=== PATIENT | female | born 1955 | race Caucasian/White ===

== ENCOUNTER 2022-03-22 15:11 | Emergency (ER) | payer OTHER, MEDICAID, SELFPAY ==
[2022-03-22 15:32] VITALS: BP 139/81; PULSE 82; RESP 20; TEMP 36.3; O2SAT 96; BMI 24.4
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
[2022-03-22] MEDS: HYDROCODONE/ACET 5/325 TABLET 1 TAB PO (16:48)
[2022-03-22] MEDS: ONDANSETRON 4 MG ODT SL (16:48)
[2022-03-22] MEDS: BACITRACIN OINT 0.9 GM PCKT 1 APPLIC TOP (16:48)
[2022-03-22] MEDS: methocarbamoL 500 MG TABLET PO (16:49)
[2022-03-22] MEDS: KETOROLAC 30 MG/ML VIAL 15 MG IM (16:49)
[2022-03-22] MEDS: ACETAMINOPHEN 325 MG TABLET 650 MG PO (16:49)
[2022-03-22 17:39] VITALS: BP 144/80; PULSE 80; RESP 16; O2SAT 99
== END 2022-03-22 17:39 | disposition home or self-care (01) ==
PROVIDERS: Emergency Provider Nurse Practitioner Critical Care Medicine
DX: S06.0X0A Concussion without loss of consciousness, initial encounter (principal); S46.819A Strain of other muscles, fascia and tendons at shoulder and upper arm level, unspecified arm, initial encounter; S02.2XXA Fracture of nasal bones, initial encounter for closed fracture; R42 Dizziness and giddiness; V19.9XXA Pedal cyclist (driver) (passenger) injured in unspecified traffic accident, initial encounter
CPT/HCPCS: 70450; 70486; 72125; 96372; 99283; 99284; J1885